=== PATIENT | male | born 1975 | race Caucasian/White ===

== ENCOUNTER 2021-08-15 12:13 | Inpatient (IN) | payer SELFPAY ==
[~2021-08-15 12:13] MED LIST: Iopamidol-370 76% 500 ML 1 ML ONE
[2021-08-15] MEDS ORDERED: Acetaminophen 500 MG TAB ONE (12:48)
[2021-08-15] MEDS ORDERED: Azithromycin 500 MG VIAL ONE (12:52)
[2021-08-15 13:11] LABS: #Eosinphils 0.1 thou/uL (0.0-0.7); #Monocytes 0.6 thou/uL (0.11-0.59); %Basophils 0.2 % (0.0-1.0); %Eosinophils 0.3 % (0.0-10.0); %Lymphocytes 6.4 % (21.0-51.0); %Monocytes 3.7 % (0.0-10.0); %Neutrophils 89.3 % (42.0-75.0); Hemoglobin 15.7 g/dL (14.0-18.0); Mean Corpuscular HGB CONC 33.2 g/dL (32.0-36.0); Mean Corpuscular Hemoglobin 29.5 pg (27.0-31.0); Mean Corpuscular Volume 88.7 fL (78.0-98.0); Mean Platelet Volume 8.8 fL (7.4-10.4); Platelet Count 163 thou/uL (130-400); RBC Distribution Width 13.1 % (11.5-14.5); Red Blood Cell (RBC) Count 5.32 mill/uL (4.70-6.10); White Blood Cell (WBC) Count 15.7 thou/uL (4.8-10.8)
[2021-08-15] MEDS ORDERED: cefTRIAXone\\ROCEPHIN 2 GM VIAL ONE (13:33)
[2021-08-15 13:47] LABS: ALT (SGPT) 38 U/L (8-55); AST (SGOT) 36 U/L (5-34); Albumin 4.2 g/dL (3.5-5.0); Alkaline Phosphatase 105 U/L (40-110); Anion Gap 16 mmol/L (10-20); BUN (Urea Nitrogen) 10 mg/dL (8.9-20.6); Calc. Creatinine Clearance 0 mL/min (70-130); Calcium 9.1 mg/dL (7.8-10.44); Carbon Dioxide 23 mmol/L (22-29); Chloride 100 mmol/L (98-107); Globulin 3.6 g/dL (2.4-3.5); Glucose 146 mg/dL (70-105); Potassium 3.3 mmol/L (3.5-5.1); Protein, Total 7.8 g/dL (6.0-8.3); Sodium 136 mmol/L (136-145)
[2021-08-15 13:55] LABS: CKMB 1.9 ng/mL (0-6.6)
[2021-08-15 14:03] LABS: SARS-CoV-2 NAA Rapid Test Not Detected (NotDetected)
[2021-08-15 14:06] LABS: Bilirubin, Total 0.6 mg/dL (0.2-1.2)
[2021-08-15] MEDS ORDERED: Potassium Chloride 20 MEQ TAB ONE (15:33)
[2021-08-15] MEDS ORDERED: Labetalol HCl 100 MG/20 ML VIAL ONE (15:34)
[2021-08-15] MEDS ORDERED: Aspirin Chewable 81 MG TAB ONE (15:35)
[2021-08-15 15:43] LABS: Bacteria/HPF None Seen HPF (None Seen); Bilirubin Negative (Negative); Blood, Urine 2+ (Negative); Clarity Clear (Clear); Glucose, Urine (Dipstick) Normal (Negative); Ketone, Urine Negative (Negative); Leukocyte Negative Leu/uL (Negative); Nitrite Negative (Negative); Protein, Urine (Dipstick) Negative (Neg-Trace); RBC/HPF 0-3 HPF (0-3); Specific Gravity, Urine 1.023 (1.002-1.036); Squamous Epithelial None Seen HPF (0-3); Urobilinogen Normal mg/dL (Less than 2); WBC/HPF 0-3 HPF (0-3)
[2021-08-15 16:09] LABS: Lactic Acid 2.3 mmol/L (0.5-2.2)
[2021-08-15] MEDS ORDERED: Ondansetron ODT 4 MG TAB PO PRN (17:01)
[2021-08-15] MEDS ORDERED: niCARdipine 25 MG/10 ML VIAL ONE (17:10)
[2021-08-15] MEDS ORDERED: VANCOMYCIN 2 GRAM/500 ML BAG 2 GM in Premix Bag 1 BAG IVPB SCH (17:15)
[2021-08-15] MEDS ORDERED: niCARdipine 25 MG in Sodium Chloride 0.9% 250 ML 250 ML IVPB SCH (17:15)
[2021-08-15] MEDS ORDERED: Hydrochlorothiazide 25 MG TAB PO SCH (17:30)
[2021-08-15 22:22] VITALS: BMI 55.6
[2021-08-15] MEDS: Famotidine 20 MG TAB PO SCH (22:51)
[2021-08-15] MEDS: Cefepime 2 GM in Sodium Chloride 0.9% 100 ML IVPB SCH (22:51)
[2021-08-16] MEDS: Acetaminophen 325 MG TAB PO PRN ×2 (03:31→17:28)
[2021-08-16 04:59] LABS: #Lymphocytes 1.4 thou/uL (1.20-3.40); #Monocytes 0.7 thou/uL (0.11-0.59); #Neutrophils 14.3 thou/uL (1.40-6.50); %Basophils 0.1 % (0.0-1.0); %Eosinophils 0.1 % (0.0-10.0); %Lymphocytes 8.6 % (21.0-51.0); %Monocytes 4.3 % (0.0-10.0); %Neutrophils 86.9 % (42.0-75.0); Hemoglobin 13.2 g/dL (14.0-18.0); Mean Corpuscular HGB CONC 33.1 g/dL (32.0-36.0); Mean Corpuscular Volume 90.5 fL (78.0-98.0); Mean Platelet Volume 9.6 fL (7.4-10.4); Platelet Count 136 thou/uL (130-400); RBC Distribution Width 13.1 % (11.5-14.5); Red Blood Cell (RBC) Count 4.39 mill/uL (4.70-6.10); White Blood Cell (WBC) Count 16.4 thou/uL (4.8-10.8)
[2021-08-16 05:16] LABS: Anion Gap 14 mmol/L (10-20); BUN (Urea Nitrogen) 9 mg/dL (8.9-20.6); Calc. Creatinine Clearance 248 mL/min (70-130); Calcium 8.2 mg/dL (7.8-10.44); Carbon Dioxide 22 mmol/L (22-29); Chloride 100 mmol/L (98-107); Glucose 137 mg/dL (70-105); Potassium 3.3 mmol/L (3.5-5.1); Sodium 133 mmol/L (136-145)
[2021-08-16] MEDS: Vancomycin 1.5 GRAM/300 ML BAG 1.5 GM in Premix Bag 1 BAG IVPB SCH ×2 (06:01→18:29)
[2021-08-16] MEDS ORDERED: Potassium Chloride 20 MEQ TAB PO SCH (09:00)
[2021-08-16] MEDS: Cefepime 2 GM in Sodium Chloride 0.9% 100 ML IVPB SCH (09:53)
[2021-08-16] MEDS: Famotidine 20 MG TAB PO SCH ×2 (09:54→20:15)
[2021-08-16] MEDS: Enoxaparin Sodium 40 MG/0.4 ML SYRINGE SC SCH (09:54)
[2021-08-16] MEDS: Hydrochlorothiazide 25 MG TAB PO SCH (09:54)
[2021-08-16] MEDS ORDERED: Dextrose 50% Abboject 50 ML SYRINGE SLOW IVP PRN (15:24)
[2021-08-16] MEDS ORDERED: HumaLOG 300 UNITS/3 ML VIAL SC PRN ×2 (15:24)
[2021-08-16] MEDS ORDERED: Dextrose 5% in Water 1,000 ML IV PRN (15:24)
[2021-08-16] MEDS: hydrALAZINE 20 MG/ML VIAL SLOW IVP PRN (17:09)
[2021-08-16] MEDS: cefTRIAXone\\ROCEPHIN 1 GM in Sodium Chloride 0.9% 100 ML IVPB SCH (20:15)
[2021-08-17] MEDS: hydrALAZINE 20 MG/ML VIAL SLOW IVP PRN ×3 (00:54→15:57)
[2021-08-17] MEDS: Acetaminophen 325 MG TAB PO PRN ×2 (03:33→10:07)
[2021-08-17 05:18] LABS: #Basophils 0.1 thou/uL (0.0-0.2); #Eosinphils 0.1 thou/uL (0.0-0.7); #Lymphocytes 1.4 thou/uL (1.20-3.40); #Monocytes 0.7 thou/uL (0.11-0.59); #Neutrophils 9.5 thou/uL (1.40-6.50); %Basophils 0.5 % (0.0-1.0); %Eosinophils 0.7 % (0.0-10.0); %Lymphocytes 12.1 % (21.0-51.0); %Monocytes 5.7 % (0.0-10.0); %Neutrophils 81.1 % (42.0-75.0); Mean Corpuscular HGB CONC 32.6 g/dL (32.0-36.0); Mean Corpuscular Hemoglobin 29.2 pg (27.0-31.0); Mean Corpuscular Volume 89.7 fL (78.0-98.0); Mean Platelet Volume 8.7 fL (7.4-10.4); Platelet Count 152 thou/uL (130-400); RBC Distribution Width 13.1 % (11.5-14.5); White Blood Cell (WBC) Count 11.8 thou/uL (4.8-10.8)
[2021-08-17] MEDS: Vancomycin 1.5 GRAM/300 ML BAG 1.5 GM in Premix Bag 1 BAG IVPB SCH ×3 (05:23→23:48)
[2021-08-17 05:35] LABS: Anion Gap 14 mmol/L (10-20); BUN (Urea Nitrogen) 8 mg/dL (8.9-20.6); Calc. Creatinine Clearance 254 mL/min (70-130); Calcium 8.8 mg/dL (7.8-10.44); Carbon Dioxide 25 mmol/L (22-29); Chloride 100 mmol/L (98-107); Glucose 129 mg/dL (70-105); Potassium 3.6 mmol/L (3.5-5.1); Sodium 135 mmol/L (136-145); Vancomycin, Trough 7.1 ug/mL
[2021-08-17] MEDS: Hydrochlorothiazide 25 MG TAB PO SCH (10:08)
[2021-08-17] MEDS: Enoxaparin Sodium 40 MG/0.4 ML SYRINGE SC SCH (10:09)
[2021-08-17] MEDS: Famotidine 20 MG TAB PO SCH ×2 (10:09→21:46)
[2021-08-17] MEDS ORDERED: Metoprolol Tartrate 25 MG TAB PO SCH (10:45)
[2021-08-17] MEDS ORDERED: Lisinopril 5 MG TAB PO SCH (10:45)
[2021-08-17] MEDS ORDERED: Furosemide 40 MG/4 ML VIAL SLOW IVP SCH (11:00)
[2021-08-17] MEDS ORDERED: hydrALAZINE 20 MG/ML VIAL SLOW IVP PRN (16:31)
[2021-08-17] MEDS: Metoprolol Tartrate 25 MG TAB PO SCH (21:46)
[2021-08-17] MEDS: cefTRIAXone\\ROCEPHIN 1 GM in Sodium Chloride 0.9% 100 ML IVPB SCH (21:46)
[2021-08-17] MEDS: Lisinopril 5 MG TAB PO SCH (21:46)
[2021-08-17] MEDS: cloNIDine 0.1 MG TAB PO PRN (23:29)
[2021-08-18 04:40] LABS: #Eosinphils 0.2 thou/uL (0.0-0.7); #Lymphocytes 2.1 thou/uL (1.20-3.40); #Monocytes 0.7 thou/uL (0.11-0.59); #Neutrophils 4.2 thou/uL (1.40-6.50); %Basophils 0.5 % (0.0-1.0); %Eosinophils 2.7 % (0.0-10.0); %Lymphocytes 29.2 % (21.0-51.0); %Neutrophils 57.5 % (42.0-75.0); Hemoglobin 13.6 g/dL (14.0-18.0); Mean Corpuscular HGB CONC 33.2 g/dL (32.0-36.0); Mean Corpuscular Hemoglobin 29.8 pg (27.0-31.0); Mean Corpuscular Volume 89.9 fL (78.0-98.0); Mean Platelet Volume 8.5 fL (7.4-10.4); Platelet Count 152 thou/uL (130-400); RBC Distribution Width 13.2 % (11.5-14.5); Red Blood Cell (RBC) Count 4.54 mill/uL (4.70-6.10); White Blood Cell (WBC) Count 7.2 thou/uL (4.8-10.8)
[2021-08-18 05:06] LABS: ALT (SGPT) 21 U/L (8-55); AST (SGOT) 18 U/L (5-34); Albumin 3.4 g/dL (3.5-5.0); Alkaline Phosphatase 74 U/L (40-110); Anion Gap 13 mmol/L (10-20); BUN (Urea Nitrogen) 14 mg/dL (8.9-20.6); Bilirubin, Total 0.4 mg/dL (0.2-1.2); Calc. Creatinine Clearance 245 mL/min (70-130); Calcium 8.6 mg/dL (7.8-10.44); Carbon Dioxide 28 mmol/L (22-29); Chloride 100 mmol/L (98-107); Globulin 2.8 g/dL (2.4-3.5); Glucose 114 mg/dL (70-105); Magnesium 2.2 mg/dL (1.6-2.6); Potassium 3.6 mmol/L (3.5-5.1); Protein, Total 6.2 g/dL (6.0-8.3); Sodium 137 mmol/L (136-145)
[2021-08-18 05:21] LABS: Vancomycin, Trough 23.2 ug/mL
[2021-08-18] MEDS: Vancomycin 1.5 GRAM/300 ML BAG 1.5 GM in Premix Bag 1 BAG IVPB SCH ×3 (05:42→22:55)
[2021-08-18] MEDS: cloNIDine 0.1 MG TAB PO PRN (05:48)
[2021-08-18 08:54] LABS: Hemoglobin A1c 6.5 % (4.0-6.0)
[2021-08-18] MEDS: Enoxaparin Sodium 40 MG/0.4 ML SYRINGE SC SCH (09:36)
[2021-08-18] MEDS: Famotidine 20 MG TAB PO SCH ×2 (09:37→20:18)
[2021-08-18] MEDS: hydrALAZINE 25 MG TAB PO SCH ×3 (09:37→20:17)
[2021-08-18] MEDS: Furosemide 40 MG/4 ML VIAL SLOW IVP SCH (09:37)
[2021-08-18] MEDS: Lisinopril 5 MG TAB PO SCH ×2 (09:38→20:17)
[2021-08-18] MEDS: Metoprolol Tartrate 25 MG TAB PO SCH ×2 (09:38→20:17)
[2021-08-18] MEDS: Hydrochlorothiazide 25 MG TAB PO SCH (09:38)
[2021-08-18] MEDS: Acetaminophen 325 MG TAB PO PRN (20:18)
[2021-08-18] MEDS: cefTRIAXone\\ROCEPHIN 1 GM in Sodium Chloride 0.9% 100 ML IVPB SCH (21:45)
[2021-08-19 04:48] LABS: #Basophils 0.1 thou/uL (0.0-0.2); #Eosinphils 0.2 thou/uL (0.0-0.7); #Monocytes 0.6 thou/uL (0.11-0.59); %Basophils 1.1 % (0.0-1.0); %Eosinophils 3.5 % (0.0-10.0); %Lymphocytes 29.4 % (21.0-51.0); %Monocytes 8.7 % (0.0-10.0); %Neutrophils 57.3 % (42.0-75.0); Hemoglobin 14.6 g/dL (14.0-18.0); Mean Corpuscular Hemoglobin 29.5 pg (27.0-31.0); Mean Corpuscular Volume 89.5 fL (78.0-98.0); Mean Platelet Volume 8.7 fL (7.4-10.4); Platelet Count 165 thou/uL (130-400); Red Blood Cell (RBC) Count 4.96 mill/uL (4.70-6.10); White Blood Cell (WBC) Count 6.9 thou/uL (4.8-10.8)
[2021-08-19 05:13] LABS: Vancomycin, Trough 28.9 ug/mL
[2021-08-19 05:15] LABS: ALT (SGPT) 27 U/L (8-55); AST (SGOT) 26 U/L (5-34); Albumin 3.5 g/dL (3.5-5.0); Alkaline Phosphatase 76 U/L (40-110); Anion Gap 14 mmol/L (10-20); BUN (Urea Nitrogen) 17 mg/dL (8.9-20.6); Bilirubin, Total 0.5 mg/dL (0.2-1.2); Calc. Creatinine Clearance 187 mL/min (70-130); Calcium 8.8 mg/dL (7.8-10.44); Carbon Dioxide 27 mmol/L (22-29); Chloride 103 mmol/L (98-107); Glucose 111 mg/dL (70-105); Magnesium 2.1 mg/dL (1.6-2.6); Potassium 3.7 mmol/L (3.5-5.1); Protein, Total 6.5 g/dL (6.0-8.3); Sodium 140 mmol/L (136-145)
[2021-08-19] MEDS: Acetaminophen 325 MG TAB PO PRN (06:03)
[2021-08-19] MEDS: Lisinopril 10 MG TAB PO SCH ×2 (08:39→21:11)
[2021-08-19] MEDS: Hydrochlorothiazide 25 MG TAB PO SCH (08:40)
[2021-08-19] MEDS: Metoprolol Tartrate 25 MG TAB PO SCH ×2 (08:43→21:11)
[2021-08-19] MEDS: Famotidine 20 MG TAB PO SCH ×2 (08:43→21:11)
[2021-08-19] MEDS: Furosemide 40 MG/4 ML VIAL SLOW IVP SCH (08:43)
[2021-08-19] MEDS: hydrALAZINE 25 MG TAB PO SCH ×3 (08:43→21:11)
[2021-08-19] MEDS: Enoxaparin Sodium 40 MG/0.4 ML SYRINGE SC SCH (08:43)
[2021-08-19] MEDS: Vancomycin 1.5 GRAM/300 ML BAG 1.5 GM in Premix Bag 1 BAG IVPB SCH (15:06)
[2021-08-19] MEDS: cefTRIAXone\\ROCEPHIN 1 GM in Sodium Chloride 0.9% 100 ML IVPB SCH (21:10)
[2021-08-20] MEDS: Vancomycin 1.5 GRAM/300 ML BAG 1.5 GM in Premix Bag 1 BAG IVPB SCH ×2 (02:37→14:34)
[2021-08-20 04:09] LABS: #Basophils 0.1 thou/uL (0.0-0.2); #Eosinphils 0.2 thou/uL (0.0-0.7); #Lymphocytes 1.9 thou/uL (1.20-3.40); #Monocytes 0.7 thou/uL (0.11-0.59); #Neutrophils 4.3 thou/uL (1.40-6.50); %Basophils 1.2 % (0.0-1.0); %Eosinophils 2.9 % (0.0-10.0); %Monocytes 9.7 % (0.0-10.0); %Neutrophils 59.1 % (42.0-75.0); Hemoglobin 14.2 g/dL (14.0-18.0); Mean Corpuscular HGB CONC 33.2 g/dL (32.0-36.0); Mean Corpuscular Hemoglobin 29.5 pg (27.0-31.0); Mean Corpuscular Volume 88.8 fL (78.0-98.0); Mean Platelet Volume 8.5 fL (7.4-10.4); Platelet Count 180 thou/uL (130-400); RBC Distribution Width 12.9 % (11.5-14.5); Red Blood Cell (RBC) Count 4.83 mill/uL (4.70-6.10); White Blood Cell (WBC) Count 7.2 thou/uL (4.8-10.8)
[2021-08-20 04:33] LABS: ALT (SGPT) 32 U/L (8-55); AST (SGOT) 28 U/L (5-34); Albumin 3.4 g/dL (3.5-5.0); Alkaline Phosphatase 76 U/L (40-110); Anion Gap 14 mmol/L (10-20); BUN (Urea Nitrogen) 15 mg/dL (8.9-20.6); Bilirubin, Total 0.4 mg/dL (0.2-1.2); Calc. Creatinine Clearance 204 mL/min (70-130); Calcium 8.9 mg/dL (7.8-10.44); Carbon Dioxide 27 mmol/L (22-29); Chloride 101 mmol/L (98-107); Estimated GFR 96; Globulin 3.3 g/dL (2.4-3.5); Glucose 114 mg/dL (70-105); Magnesium 2.1 mg/dL (1.6-2.6); Potassium 3.2 mmol/L (3.5-5.1); Protein, Total 6.7 g/dL (6.0-8.3); Sodium 139 mmol/L (136-145)
[2021-08-20] MEDS: hydrALAZINE 25 MG TAB PO SCH ×3 (08:03→21:42)
[2021-08-20] MEDS: Famotidine 20 MG TAB PO SCH ×2 (08:04→21:42)
[2021-08-20] MEDS: Hydrochlorothiazide 25 MG TAB PO SCH (08:04)
[2021-08-20] MEDS: Metoprolol Tartrate 25 MG TAB PO SCH (08:05)
[2021-08-20] MEDS: Lisinopril 10 MG TAB PO SCH ×2 (08:05→21:41)
[2021-08-20] MEDS: Furosemide 40 MG/4 ML VIAL SLOW IVP SCH ×2 (08:08→10:03)
[2021-08-20] MEDS: Enoxaparin Sodium 40 MG/0.4 ML SYRINGE SC SCH (08:08)
[2021-08-20] MEDS: Carvedilol 6.25 MG TAB PO SCH (16:48)
[2021-08-20] MEDS: cefTRIAXone\\ROCEPHIN 1 GM in Sodium Chloride 0.9% 100 ML IVPB SCH (21:42)
[2021-08-21 01:33] LABS: Vancomycin, Trough 15.9 ug/mL
[2021-08-21] MEDS: Vancomycin 1.5 GRAM/300 ML BAG 1.5 GM in Premix Bag 1 BAG IVPB SCH ×2 (02:08→15:37)
[2021-08-21 04:11] LABS: #Basophils 0.1 thou/uL (0.0-0.2); #Eosinphils 0.2 thou/uL (0.0-0.7); #Monocytes 0.6 thou/uL (0.11-0.59); #Neutrophils 4.3 thou/uL (1.40-6.50); %Basophils 0.8 % (0.0-1.0); %Lymphocytes 28.3 % (21.0-51.0); %Monocytes 8.9 % (0.0-10.0); %Neutrophils 59.1 % (42.0-75.0); Hemoglobin 14.7 g/dL (14.0-18.0); Mean Corpuscular HGB CONC 32.9 g/dL (32.0-36.0); Mean Corpuscular Hemoglobin 29.4 pg (27.0-31.0); Mean Corpuscular Volume 89.3 fL (78.0-98.0); Mean Platelet Volume 8.3 fL (7.4-10.4); Platelet Count 175 thou/uL (130-400); RBC Distribution Width 12.9 % (11.5-14.5); Red Blood Cell (RBC) Count 5.01 mill/uL (4.70-6.10); White Blood Cell (WBC) Count 7.2 thou/uL (4.8-10.8)
[2021-08-21 04:32] LABS: Anion Gap 12 mmol/L (10-20); BUN (Urea Nitrogen) 15 mg/dL (8.9-20.6); Calc. Creatinine Clearance 193 mL/min (70-130); Carbon Dioxide 29 mmol/L (22-29); Chloride 102 mmol/L (98-107); Estimated GFR 93; Glucose 118 mg/dL (70-105); Potassium 3.4 mmol/L (3.5-5.1); Sodium 140 mmol/L (136-145)
[2021-08-21] MEDS ORDERED: Hydrochlorothiazide 25 MG TAB PO SCH (09:00)
[2021-08-21] MEDS: Famotidine 20 MG TAB PO SCH ×2 (09:25→20:15)
[2021-08-21] MEDS: Lisinopril 10 MG TAB PO SCH ×2 (09:25→20:15)
[2021-08-21] MEDS: Furosemide 40 MG/4 ML VIAL SLOW IVP SCH (09:25)
[2021-08-21] MEDS: Carvedilol 6.25 MG TAB PO SCH ×2 (09:25→17:38)
[2021-08-21] MEDS: hydrALAZINE 25 MG TAB PO SCH ×3 (09:25→20:15)
[2021-08-21] MEDS: Enoxaparin Sodium 40 MG/0.4 ML SYRINGE SC SCH (09:26)
[2021-08-21] MEDS ORDERED: cefTRIAXone\\ROCEPHIN 1 GM in Sodium Chloride 0.9% 100 ML IVPB SCH (17:15)
[2021-08-21] MEDS ORDERED: Cefdinir 300 MG CAP PO SCH (18:15)
[2021-08-21] MEDS ORDERED: Cefixime 100 MG/5 ML Oral Suspension PO SCH (18:30)
[2021-08-21 19:52] VITALS: BP 129/68; TEMP 98.6
[2021-08-22] MEDS ORDERED: Cefdinir 300 MG CAP PO SCH (09:00)
== END 2021-08-21 20:21 | disposition home or self-care (01) | DRG 872 ==
LOC: ERS 12:13 → ERHOLD 16:57 → 2NO 22:13
PROVIDERS: ADMIT Hospitalist; ATTEND Hospitalist
DX: A41.9 Sepsis, unspecified organism (principal); I16.1 Hypertensive emergency; L03.115 Cellulitis of right lower limb; L03.116 Cellulitis of left lower limb; Z68.43 Body mass index [BMI] 50.0-59.9, adult; Z20.822 Contact with and (suspected) exposure to COVID-19; I10 Essential (primary) hypertension; E11.9 Type 2 diabetes mellitus without complications; M10.9 Gout, unspecified; E78.5 Hyperlipidemia, unspecified; E66.01 Morbid (severe) obesity due to excess calories; I16.0 Hypertensive urgency; Z91.120 Patient's intentional underdosing of medication regimen due to financial hardship; Z59.00 Homelessness unspecified
CPT/HCPCS: 36415; 36416; 70450; 71045; 71275; 80048; 80053; 80202; 81003; 81015; 82553; 83036; 83605; 83735; 83880; 84443; 84484; 85025; 87040; 93005; 93306; 93970; 94660; 96365; 96367; 96375; J0360; J0456; J0692; J0696; J1650; J1940; J3370; J3490; Q9967